=== PATIENT | male | born 1995 | race Caucasian/White ===

== ENCOUNTER → 2018-06-15 | Outpatient (CLI) | payer OTHER | END | disposition home or self-care (01) | LOC: LAB EV 10:45 → LAB SHORT 10:45 | DX: L02.214 Cutaneous abscess of groin (principal) | CPT/HCPCS: 87070; 87075; 87077; 87147; 87186; 87205 ==

== ENCOUNTER 2023-04-07 07:58 | Day surgery (SDC) | payer OTHER ==
[2023-04-07] VITALS (14 sets, daily range): BP systolic 97–118; BP diastolic 58–68
[~2023-04-07] VITALS: Ht 165.1 cm; Wt 66.2 kg
[~2023-04-07 07:58] MED LIST: CeFAZolin Sodium 2,000 MG in NS 50 ML IV SCH; Lactated Ringer's 1,000 ML IV SCH; METPHE10 PO
[2023-04-07] MEDS ORDERED: propofoL 20 ML IV ONE (08:22)
[2023-04-07] MEDS ORDERED: Rocuronium Bromide 10 MG/ML 5ML Injection IV ONE ×3 (08:22→11:49)
[2023-04-07] MEDS ORDERED: FentaNYL Citrate 50 MCG/ML 2 ML Injection ONE ×3 (08:22→13:01)
[2023-04-07] MEDS ORDERED: FentaNYL Citrate 50 MCG/ML 2 ML Injection IV PRN ×2 (08:40)
[2023-04-07] MEDS ORDERED: Midazolam HCl 1MG / ML 2ML Vial IV ONE (08:40)
[2023-04-07] MEDS ORDERED: HYDROmorphone HCl/Pf 1MG SYR IV PRN (08:40)
[2023-04-07] MEDS ORDERED: Ondansetron HCl 2 MG / ML 2ML Vial IV PRN (08:40)
[2023-04-07] MEDS ORDERED: Lidocaine HCl 1% 5 ML SYR INJ SCH (08:45)
[2023-04-07] MEDS ORDERED: Bupivacaine 0.5% HCl 5 MG/ML 30MLVIAL ONE (09:56)
[2023-04-07] MEDS ORDERED: Phenylephrine HCl 100 MCG/ML-NS 10MLSYR (1MG/10ML) ONE (10:40)
[2023-04-07] MEDS ORDERED: Ondansetron HCl 2 MG / ML 2ML Vial ONE (10:41)
[2023-04-07] MEDS ORDERED: Dexamethasone Sod Phos 10 MG/ML 1ML VIAL ONE (10:41)
--- NOTE | 2023-04-07 11:14 | NUR ---
04/07/23 1114 Maranda,Tamra RASH NOTED TO ABDOMEN AND CHEST AREA PRIOR TO PREP. DR. WEBBER AWARE. PTS FAMILY (KATHIE, MOM) WAS CALLED AFTER PROCEDURE STARTED TO RECEIVE VERBAL CONSENT FOR RIGHT SIDE TO BE REPAIRED WELL. DR. WEBBER SPOKE WITH MOM OVER THE PHONE AND VERBAL CONSENT WAS OBTAINED FOR BILATERAL ROBOTIC INGUINAL HERNIA REPAIR WITH MESH.
[2023-04-07] MEDS ORDERED: Sugammadex Sodium 200 MG/2ML SDV (100 MG/ML) ONE (12:02)
[2023-04-07] MEDS ORDERED: HYDROcodone 5-APAP 325 TAB PO PRN (13:00)
--- NOTE | 2023-04-07 13:09 | NUR ---
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
--- NOTE | 2023-04-07 13:10 | NUR ---
PULSE HAS BEEN 69 TO 78 WHILE IN PACU
--- NOTE | 2023-04-07 14:53 | NUR ---
DISCHARGE NOTE PT A&OX4, BREATHING RA, TOLERATING PO FLUIDS AND FOODS, MOM AT BEDSIDE. PT MEDICATED FOR PAIN AND NAUSEA PER MD ORDERS. PT STATED NAUSEA WAS BETTER AND PAIN WAS TOLERABLE- BECOMES MORE PAINFUL WITH MOVEMENT. Discharge instructions reviewed with patient. Patient verbalizes understanding. Copy given to patient to take home. Dressing to procedure site clean, dry, intact with no visible drainage, swelling, erythema or bruising noted. Discharged via wheelchair to private car for ride home.
== END 2023-04-07 14:45 | disposition home or self-care (01) ==
LOC: ORSCMMR 07:58 → ORD 14:00 → ORSCMMR 14:45
PROVIDERS: Surgery
PROC: 8E0W4CZ Robotic Assisted Procedure of Trunk Region, Percutaneous Endoscopic Approach (ICD-10-PCS; principal; 2023-04-07 09:30)
PROC: 0YUA4JZ Supplement Bilateral Inguinal Region with Synthetic Substitute, Percutaneous Endoscopic Approach (ICD-10-PCS; principal; 2023-04-07 09:30)
DX: K40.20 Bilateral inguinal hernia, without obstruction or gangrene, not specified as recurrent (principal); F84.0 Autistic disorder; F90.9 Attention-deficit hyperactivity disorder, unspecified type; Z79.899 Other long term (current) drug therapy
CPT/HCPCS: A9270; C1781; J0690; J1100; J2250; J2371; J2405; J2704; J3010; J7120

== ENCOUNTER 2024-02-11 13:43 | Emergency (ER) | payer OTHER ==
[~2024-02-11] VITALS: Ht 167.6 cm; Wt 73.5 kg
[~2024-02-11 13:43] MED LIST changes: -CeFAZolin Sodium 2,000 MG in NS 50 ML IV SCH; -Lactated Ringer's 1,000 ML IV SCH
[2024-02-11 13:53] VITALS: BP 136/79
[2024-02-11 14:27] LABS: Albumin, Blood 4.1 g/dL (3.4-5.0); Albumin/Globulin Ratio 1.2 (0.8-1.8); Bilirubin, Total 0.6 mg/dL (0.1-1.0); Bun/Creatinine Ratio 15.4 (12.0-20.0); Calcium, Blood 9.2 mg/dL (8.5-10.1); Creatinine, Blood 0.78 mg/dL (0.60-1.20); Globulin, Blood 3.4 g/dL (2.2-4.0); Total Protein, Blood 7.5 g/dL (6.4-8.2)
[2024-02-11 14:29] LABS: BASOPHILS ABSOLUTE AUTO 0.01 K/mm3 (0.00-0.23); BASOPHILS PERCENT AUTO 0 % (0-2); EOSINOPHILS ABSOLUTE AUTO 0.04 K/mm3 (0.00-0.68); EOSINOPHILS PERCENT AUTO 1 % (0-6); Hematocrit 41.2 % (37.0-53.0); Hemoglobin 14.4 g/dL (13.5-17.5); IMMATURE GRAN ABSOLUTE AUTO 0.01 K/mm3 (0.00-0.10); IMMATURE GRAN PERCENT AUTO 0 % (0-1); LYMPHOCYTES ABSOLUTE AUTO 0.81 K/mm3 (0.84-5.20); LYMPHOCYTES PERCENT AUTO 14 % (21-46); MONOCYTES ABSOLUTE AUTO 0.55 K/mm3 (0.16-1.47); MONOCYTES PERCENT AUTO 10 % (4-13); Mean Corpuscular HGB 30.1 pg (26.0-34.0); Mean Corpuscular Volume 86 fL (80-100); Mean Platelet Volume 9.5 fL (9.1-12.4); NEUTROPHILS ABSOLUTE AUTO 4.23 K/mm3 (1.96-9.15); NEUTROPHILS PERCENT AUTO 75 % (41-73); Platelet Count 272 K/mm3 (150-400); RDW Coefficient Variation 12.3 % (11.7-14.2); RDW Standard Deviation 38.5 fL (35.1-46.3); Red Blood Cell Count 4.78 M/mm3 (4.30-5.90); White Blood Cell Count 5.65 K/mm3 (4.00-11.30)
[2024-02-11] MEDS ORDERED: Ketorolac Tromethamine 30mg Vial IV ONE (15:30)
== END 2024-02-11 15:48 | disposition home or self-care (01) ==
LOC: ER 13:43
PROVIDERS: Physician Assistant
DX: L25.9 Unspecified contact dermatitis, unspecified cause (principal); B34.9 Viral infection, unspecified; Z98.890 Other specified postprocedural states; Z88.0 Allergy status to penicillin; Z88.2 Allergy status to sulfonamides; Z79.899 Other long term (current) drug therapy
CPT/HCPCS: 80053; 85025; 96374; 99283-25; J1885

== ENCOUNTER 2024-03-19 08:46 | Emergency (ER) | payer OTHER ==
[~2024-03-19] VITALS: Ht 170.2 cm; Wt 79.4 kg
[2024-03-19 09:10] VITALS: BP 161/99
[2024-03-19 11:39] LABS: CORONAVIRUS COVID-19 AG Negative (NEGATIVE); INFLUENZA A AG Negative (NEGATIVE); INFLUENZA B AG Negative (NEGATIVE)
== END 2024-03-19 12:04 | disposition home or self-care (01) ==
LOC: ER 08:46
PROVIDERS: Emergency Medicine
DX: J06.9 Acute upper respiratory infection, unspecified (principal); Z79.899 Other long term (current) drug therapy; Z88.0 Allergy status to penicillin; Z88.2 Allergy status to sulfonamides
CPT/HCPCS: 71046; 87428-QW; 99283-25

== ENCOUNTER 2024-03-20 03:52 | Emergency (ER) | payer OTHER ==
[~2024-03-20] VITALS: Ht 170.2 cm; Wt 72.6 kg
[2024-03-20 06:13] VITALS: BP 125/65
== END 2024-03-20 06:51 | disposition home or self-care (01) ==
LOC: ER 03:52
DX: J06.9 Acute upper respiratory infection, unspecified (principal); Z88.0 Allergy status to penicillin; Z88.2 Allergy status to sulfonamides
CPT/HCPCS: 99283

== ENCOUNTER 2024-09-02 08:34 | Emergency (ER) | payer OTHER ==
[~2024-09-02] VITALS: Ht 177.8 cm; Wt 81.7 kg
[2024-09-02] MEDS ORDERED: Ondansetron HCl 2 MG / ML 2ML Vial IV ONE (08:55)
[2024-09-02] MEDS ORDERED: NS 1,000 ML IV SCH (08:55)
[2024-09-02] MEDS ORDERED: Ketorolac Tromethamine 30mg Vial IV ONE (08:55)
[2024-09-02] MEDS ORDERED: HYDROmorphone HCl/Pf 1MG SYR IV ONE ×2 (08:55→10:45)
[2024-09-02 09:13] LABS: BASOPHILS ABSOLUTE AUTO 0.03 K/mm3 (0.00-0.23); BASOPHILS PERCENT AUTO 1 % (0-2); EOSINOPHILS ABSOLUTE AUTO 0.31 K/mm3 (0.00-0.68); EOSINOPHILS PERCENT AUTO 5 % (0-6); Hematocrit 43.0 % (37.0-53.0); Hemoglobin 14.9 g/dL (13.5-17.5); IMMATURE GRAN ABSOLUTE AUTO 0.02 K/mm3 (0.00-0.10); IMMATURE GRAN PERCENT AUTO 0 % (0-1); LYMPHOCYTES ABSOLUTE AUTO 2.08 K/mm3 (0.84-5.20); LYMPHOCYTES PERCENT AUTO 34 % (21-46); MONOCYTES ABSOLUTE AUTO 0.84 K/mm3 (0.16-1.47); MONOCYTES PERCENT AUTO 14 % (4-13); Mean Corpuscular HGB Conc 34.7 g/dL (31.5-36.5); Mean Corpuscular Volume 86 fL (80-100); NEUTROPHILS ABSOLUTE AUTO 2.88 K/mm3 (1.96-9.15); NEUTROPHILS PERCENT AUTO 47 % (41-73); NRBC ABSOLUTE 0.00 K/mm3 (0.00-0.02); NRBC Auto 0.0 /100 WBC (0.0-0.2); Platelet Count 320 K/mm3 (150-400); RDW Coefficient Variation 12.4 % (11.7-14.2); RDW Standard Deviation 39.0 fL (35.1-46.3)
[2024-09-02 09:42] LABS: Alanine Aminotransfer (ALT/SGP 174.0 U/L (12-78); Albumin, Blood 4.2 g/dL (3.4-5.0); Albumin/Globulin Ratio 1.4 (0.8-1.8); Anion Gap 12.0 mmol/L (3-11); Aspartate Aminotrans (AST/SGOT 45.0 U/L (12-37); Bilirubin, Total 0.7 mg/dL (0.1-1.0); Blood Urea Nitrogen 7.0 mg/dL (8-24); CO2, Blood 21.0 mmol/L (21-32); Calcium, Blood 9.2 mg/dL (8.5-10.1); Chloride, Blood 109.0 mmol/L (98-108); Creatinine, Blood 0.93 mg/dL (0.60-1.20); Globulin, Blood 3.0 g/dL (2.2-4.0); Glucose, Blood 158.0 mg/dL (70-99); Potassium, Blood 3.3 mmol/L (3.5-5.5); Sodium, Blood 139.0 mmol/L (136-145); Total Protein, Blood 7.2 g/dL (6.4-8.2)
[2024-09-02 12:30] LABS: Source, Urine Clean Catch
[2024-09-02 12:36] LABS: Bilirubin, Urine Neg (Neg); Glucose Qualitative, Urine Neg (Neg); Ketones, Urine Neg (Neg); Leukocyte Esterase, Urine Neg (Neg); Protein, Urine 1+ (Neg); Specific Gravity, Urine 1.010 (1.003-1.022); Urobilinogen, Urine NORM (Normal)
[2024-09-02 12:57] LABS: Color, Urine Pale Yellow (P-Yellow)
[2024-09-02 12:58] LABS: White Blood Cells, Urine 0-2 /hpf (0-5)
[2024-09-02 13:30] VITALS: BP 122/74
[2024-09-02] MEDS ORDERED: OXYC5 PO (13:51)
== END 2024-09-02 14:08 | disposition home or self-care (01) ==
LOC: ER 08:34
PROVIDERS: Emergency Medicine
DX: N13.2 Hydronephrosis with renal and ureteral calculous obstruction (principal)
CPT/HCPCS: 74177; 80053; 81001; 83690; 85025; 96361; 96374-59; 96375; 96376; 99284-25; J1171; J1885; J2405; J7030; Q9967

== ENCOUNTER 2024-09-05 09:20 | Emergency (ER) | payer OTHER ==
[~2024-09-05] VITALS: Ht 182.9 cm; Wt 72.6 kg
[~2024-09-05 09:20] MED LIST changes: +OXYC5 PO
[2024-09-05] MEDS ORDERED: NS 1,000 ML IV SCH (09:55)
[2024-09-05] MEDS ORDERED: Ketorolac Tromethamine 30mg Vial IM ONE (09:55)
[2024-09-05 10:19] LABS: BASOPHILS ABSOLUTE AUTO 0.02 K/mm3 (0.00-0.23); BASOPHILS PERCENT AUTO 0 % (0-2); EOSINOPHILS ABSOLUTE AUTO 0.21 K/mm3 (0.00-0.68); EOSINOPHILS PERCENT AUTO 4 % (0-6); Hematocrit 40.9 % (37.0-53.0); Hemoglobin 14.2 g/dL (13.5-17.5); IMMATURE GRAN ABSOLUTE AUTO 0.01 K/mm3 (0.00-0.10); IMMATURE GRAN PERCENT AUTO 0 % (0-1); LYMPHOCYTES ABSOLUTE AUTO 0.87 K/mm3 (0.84-5.20); LYMPHOCYTES PERCENT AUTO 16 % (21-46); MONOCYTES ABSOLUTE AUTO 0.41 K/mm3 (0.16-1.47); MONOCYTES PERCENT AUTO 8 % (4-13); Mean Corpuscular HGB Conc 34.7 g/dL (31.5-36.5); Mean Corpuscular Volume 85 fL (80-100); NEUTROPHILS ABSOLUTE AUTO 3.80 K/mm3 (1.96-9.15); NEUTROPHILS PERCENT AUTO 71 % (41-73); NRBC ABSOLUTE 0.00 K/mm3 (0.00-0.02); NRBC Auto 0.0 /100 WBC (0.0-0.2); Platelet Count 273 K/mm3 (150-400); RDW Coefficient Variation 12.4 % (11.7-14.2); RDW Standard Deviation 38.2 fL (35.1-46.3)
[2024-09-05 10:42] LABS: Alanine Aminotransfer (ALT/SGP 112.0 U/L (12-78); Albumin, Blood 4.2 g/dL (3.4-5.0); Albumin/Globulin Ratio 1.4 (0.8-1.8); Anion Gap 12.0 mmol/L (3-11); Aspartate Aminotrans (AST/SGOT 32.0 U/L (12-37); Bilirubin, Total 0.5 mg/dL (0.1-1.0); Blood Urea Nitrogen 12.0 mg/dL (8-24); CO2, Blood 25.0 mmol/L (21-32); Calcium, Blood 8.8 mg/dL (8.5-10.1); Chloride, Blood 106.0 mmol/L (98-108); Creatinine, Blood 0.87 mg/dL (0.60-1.20); Globulin, Blood 2.9 g/dL (2.2-4.0); Glucose, Blood 118.0 mg/dL (70-99); Potassium, Blood 3.8 mmol/L (3.5-5.5); Sodium, Blood 139.0 mmol/L (136-145); Total Protein, Blood 7.1 g/dL (6.4-8.2)
[2024-09-05 12:26] LABS: Source, Urine Clean Catch
[2024-09-05 12:34] LABS: Bilirubin, Urine Neg (Neg); Glucose Qualitative, Urine Neg (Neg); Ketones, Urine Neg (Neg); Leukocyte Esterase, Urine Neg (Neg); Protein, Urine Neg (Neg); Specific Gravity, Urine 1.015 (1.003-1.022); Urobilinogen, Urine NORM (Normal)
[2024-09-05] MEDS ORDERED: TAMS.4ER PO (12:43)
[2024-09-05 12:59] VITALS: BP 140/76
[2024-09-05 13:21] LABS: Color, Urine Pale Yellow (P-Yellow); Red Blood Cells, Urine 0-2 /hpf (0-2); White Blood Cells, Urine Not Seen /hpf (0-5)
== END 2024-09-05 13:00 | disposition home or self-care (01) ==
LOC: ER 09:20
PROVIDERS: Student in an Organized Health Care Education/Training Program
DX: R10.31 Right lower quadrant pain (principal); Z88.0 Allergy status to penicillin; Z88.2 Allergy status to sulfonamides
CPT/HCPCS: 76770; 80053; 81001; 83690; 85025; 96361; 96374; 99284-25; J1885; J7030